=== PATIENT | male | born 1995 | race African-American/Black ===

== ENCOUNTER 2020-02-15 09:21 | Inpatient (IN) | payer OTHER ==
[~2020-02-15] VITALS: Ht 167.6 cm; Wt 65.0 kg
[2020-02-15 10:59] LABS: GLUCOMETER DEV NAME(LOC) PVLAB.13
[2020-02-15] MEDS ORDERED: MAGNESIUM HYDROXIDE SUSPENSION 30 ML UDCUP PO PRN (13:45)
[2020-02-15] MEDS: HEPARIN SODIUM,PORCINE 5,000 UNITS/ML VIAL SQ SCH (17:05)
[2020-02-15 17:14] VITALS: BP 127/86
[2020-02-15 17:57] LABS: BASOPHILS % (AUTO) 0.3 % (0.0-2.0); EOSINOPHILS % (AUTO) 1.2 % (1.0-6.0); HEMATOCRIT 50.1 % (41-53); HEMOGLOBIN 16.5 g/dL (13.5-17.5); LYMPHOCYTES # (AUTO) 1.2 K/uL (1.0-4.8); LYMPHOCYTES % (AUTO) 19.8 % (22.0-44.0); MEAN CORPUSCULAR HEMOGLOBIN 28.1 pg (26.0-34.0); MEAN CORPUSCULAR VOLUME 85 fL (80-100); MONOCYTES # (AUTO) 0.5 K/uL (0.1-1.0); MONOCYTES % (AUTO) 8.6 % (2.0-9.0); NEUTROPHILS # (AUTO) 4.3 K/uL (1.8-7.7); NEUTROPHILS % (AUTO) 70.1 % (40.0-70.0); PLATELET COUNT (AUTO) 285 K/uL (150-450); RED BLOOD CELL COUNT(AUTO) 5.88 MIL/uL (4.50-5.90); RED CELL DISTRIBUTION WIDTH 14.2 % (11.5-14.5)
[2020-02-15 18:03] LABS: APPEARANCE,URINE CLEAR (CLEAR); BILIRUBIN,URINE NEGATIVE (NEGATIVE); GLUCOSE, URINE (UA) NEGATIVE (NEGATIVE); KETONES,URINE 15 mg/dL (NEGATIVE); LEUKOCYTE ESTERASE ,URINE NEGATIVE (NEGATIVE); NITRATE,URINE NEGATIVE (NEGATIVE); OCCULT BLOOD,URINE NEGATIVE (NEGATIVE); PROTEIN,URINE NEGATIVE (NEGATIVE); UROBILINOGEN,URINE 0.2 mg/dL (<=1.0)
[2020-02-15 18:11] LABS: ANION GAP 8 mmol/L (8-16); CALCIUM, TOTAL 9.4 mg/dL (8.8-10.5); CARBON DIOXIDE 33 mmol/L (22-29); CHLORIDE 103 mmol/L (98-107); GLOMERULAR FILTR. RATE CALC > 60 mL/min (>60); GLUCOSE,RANDOM 130 mg/dL (70-110); POTASSIUM 3.9 mmol/L (3.5-5.1); SODIUM SERUM 144 mmol/L (136-145); UREA NITROGEN, BLOOD 11 mg/dL (7-18)
[2020-02-15 18:19] LABS: LACTIC ACID 1.8 mmol/L (0.4-2.0)
[2020-02-15 18:30] LABS: ALANINE AMINOTRANSFERASE 63 U/L (12-78); ALKALINE PHOSPHATASE 74 U/L (46-116); ASPARTATE AMINOTRANSFERASE 24 U/L (15-37); BILIRUBIN,TOTAL 0.3 mg/dL (0.1-1.0); C-REACTIVE PROTEIN QUANT 0.17 mg/dL (0.00-0.30); FERRITIN 316 ng/mL (26-388); TOTAL PROTEIN, SERUM 7.9 g/dL (6.4-8.2)
[2020-02-15 21:59] VITALS: BP 109/61
[2020-02-16] MEDS: HEPARIN SODIUM,PORCINE 5,000 UNITS/ML VIAL SQ SCH ×3 (00:43→15:34)
[2020-02-16 06:30] VITALS: BP 111/71
[2020-02-16 09:15] VITALS: BP 111/64
[2020-02-16 15:20] VITALS: BP 122/86
[2020-02-16 21:56] VITALS: BP 121/47
[2020-02-17] MEDS: HEPARIN SODIUM,PORCINE 5,000 UNITS/ML VIAL SQ SCH ×4 (00:14→22:29)
[2020-02-17 04:33] VITALS: BP 124/72
[2020-02-17 04:38] VITALS: BP 100/62
[2020-02-17 04:50] VITALS: BP_SYST 100; BP_SYST 124; BP_DIAS 62; BP_DIAS 72
[2020-02-17 08:00] VITALS: BP 117/69
[2020-02-17 16:00] VITALS: BP 114/73
[2020-02-17 22:46] VITALS: BP 159/78
[2020-02-17] MEDS ORDERED: HYPROMELLOSE 0.5% 15 ML OPHTHALMIC SOLUTION OU PRN (23:30)
[2020-02-18 01:00] VITALS: BP 115/69
[2020-02-18] MEDS: BENZONATATE 100 MG CAPSULE PO PRN ×3 (01:06→12:08)
[2020-02-18 06:34] VITALS: BP 128/75
[2020-02-18 09:17] VITALS: BP 111/61
[2020-02-18] MEDS: HEPARIN SODIUM,PORCINE 5,000 UNITS/ML VIAL SQ SCH ×3 (09:20→23:15)
[2020-02-18 14:02] LABS: EOSINOPHILS % (AUTO) 1.6 % (1.0-6.0); HEMATOCRIT 45.2 % (41-53); LYMPHOCYTES # (AUTO) 1.2 K/uL (1.0-4.8); LYMPHOCYTES % (AUTO) 27.3 % (22.0-44.0); MEAN CORPUSCULAR HEMOGLOBIN 28.3 pg (26.0-34.0); MEAN CORPUSCULAR HGB CONC 33.3 G/dL (31.0-37.0); MEAN CORPUSCULAR VOLUME 85 fL (80-100); MONOCYTES # (AUTO) 0.5 K/uL (0.1-1.0); MONOCYTES % (AUTO) 11.6 % (2.0-9.0); NEUTROPHILS # (AUTO) 2.5 K/uL (1.8-7.7); NEUTROPHILS % (AUTO) 58.5 % (40.0-70.0); PLATELET COUNT (AUTO) 277 K/uL (150-450); RED BLOOD CELL COUNT(AUTO) 5.31 MIL/uL (4.50-5.90); RED CELL DISTRIBUTION WIDTH 14.2 % (11.5-14.5)
[2020-02-18 14:17] LABS: ANION GAP 4 mmol/L (8-16); CALCIUM, TOTAL 9.3 mg/dL (8.8-10.5); CARBON DIOXIDE 33 mmol/L (22-29); CHLORIDE 104 mmol/L (98-107); GLOMERULAR FILTR. RATE CALC > 60 mL/min (>60); GLUCOSE,RANDOM 101 mg/dL (70-110); POTASSIUM 4.3 mmol/L (3.5-5.1); SODIUM SERUM 141 mmol/L (136-145); UREA NITROGEN, BLOOD 8 mg/dL (7-18)
[2020-02-18] MEDS ORDERED: MAGNESIUM SULFATE 2 GM/WATER 50 ML IV ONE (15:15)
[2020-02-18] MEDS ORDERED: SODIUM CHLORIDE 0.9% 250 ML IV ONE (15:24)
[2020-02-18 16:31] VITALS: BP 117/78
[2020-02-18 22:30] VITALS: BP 124/69
[2020-02-19 06:58] LABS: BASOPHILS % (AUTO) 0.7 % (0.0-2.0); HEMATOCRIT 45.9 % (41-53); HEMOGLOBIN 14.8 g/dL (13.5-17.5); LYMPHOCYTES # (AUTO) 1.6 K/uL (1.0-4.8); LYMPHOCYTES % (AUTO) 31.5 % (22.0-44.0); MEAN CORPUSCULAR HEMOGLOBIN 27.5 pg (26.0-34.0); MEAN CORPUSCULAR HGB CONC 32.3 G/dL (31.0-37.0); MEAN CORPUSCULAR VOLUME 85 fL (80-100); MONOCYTES # (AUTO) 0.6 K/uL (0.1-1.0); MONOCYTES % (AUTO) 11.9 % (2.0-9.0); NEUTROPHILS # (AUTO) 2.8 K/uL (1.8-7.7); NEUTROPHILS % (AUTO) 53.9 % (40.0-70.0); PLATELET COUNT (AUTO) 273 K/uL (150-450); RED BLOOD CELL COUNT(AUTO) 5.39 MIL/uL (4.50-5.90); RED CELL DISTRIBUTION WIDTH 14.1 % (11.5-14.5)
[2020-02-19 07:03] LABS: ANION GAP 5 mmol/L (8-16); CALCIUM, TOTAL 9.3 mg/dL (8.8-10.5); CARBON DIOXIDE 31 mmol/L (22-29); CHLORIDE 105 mmol/L (98-107); GLOMERULAR FILTR. RATE CALC > 60 mL/min (>60); GLUCOSE,RANDOM 91 mg/dL (70-110); POTASSIUM 4.8 mmol/L (3.5-5.1); SODIUM SERUM 141 mmol/L (136-145); UREA NITROGEN, BLOOD 11 mg/dL (7-18)
[2020-02-19 08:51] VITALS: BP 121/81
[2020-02-19] MEDS: HEPARIN SODIUM,PORCINE 5,000 UNITS/ML VIAL SQ SCH ×2 (08:57→15:26)
[2020-02-19] MEDS: BENZONATATE 100 MG CAPSULE PO PRN (08:57)
[2020-02-19] MEDS: ACETAMINOPHEN 325 MG TABLET PO PRN (08:57)
[2020-02-19] MEDS: PHENOL 1.4% 177 ML SPRAY BOTTLE PO PRN (15:26)
[2020-02-19 16:46] VITALS: BP 139/82
[2020-02-19 22:53] VITALS: BP 107/72
[2020-02-20] MEDS: HEPARIN SODIUM,PORCINE 5,000 UNITS/ML VIAL SQ SCH ×4 (00:52→23:59)
[2020-02-20 06:22] VITALS: BP 109/73
[2020-02-20 08:13] LABS: BASOPHILS % (AUTO) 0.6 % (0.0-2.0); EOSINOPHILS % (AUTO) 2.3 % (1.0-6.0); HEMATOCRIT 46.9 % (41-53); HEMOGLOBIN 14.9 g/dL (13.5-17.5); LYMPHOCYTES # (AUTO) 1.4 K/uL (1.0-4.8); LYMPHOCYTES % (AUTO) 26.1 % (22.0-44.0); MEAN CORPUSCULAR HEMOGLOBIN 27.3 pg (26.0-34.0); MEAN CORPUSCULAR HGB CONC 31.8 G/dL (31.0-37.0); MEAN CORPUSCULAR VOLUME 86 fL (80-100); MONOCYTES # (AUTO) 0.5 K/uL (0.1-1.0); MONOCYTES % (AUTO) 9.9 % (2.0-9.0); NEUTROPHILS # (AUTO) 3.4 K/uL (1.8-7.7); NEUTROPHILS % (AUTO) 61.1 % (40.0-70.0); PLATELET COUNT (AUTO) 280 K/uL (150-450); RED BLOOD CELL COUNT(AUTO) 5.46 MIL/uL (4.50-5.90)
[2020-02-20] MEDS: PHENOL 1.4% 177 ML SPRAY BOTTLE PO PRN ×2 (08:15→16:10)
[2020-02-20] MEDS: BENZONATATE 100 MG CAPSULE PO PRN ×2 (08:15→16:10)
[2020-02-20 08:29] LABS: ANION GAP 8 mmol/L (8-16); CALCIUM, TOTAL 9.1 mg/dL (8.8-10.5); CARBON DIOXIDE 29 mmol/L (22-29); CHLORIDE 103 mmol/L (98-107); CREATININE 1.04 mg/dL (0.60-1.30); GLOMERULAR FILTR. RATE CALC > 60 mL/min (>60); GLUCOSE,RANDOM 85 mg/dL (70-110); POTASSIUM 5.1 mmol/L (3.5-5.1); SODIUM SERUM 140 mmol/L (136-145); UREA NITROGEN, BLOOD 11 mg/dL (7-18)
[2020-02-20 09:09] VITALS: BP 119/71
[2020-02-20 16:31] VITALS: BP 117/68
[2020-02-20 20:33] VITALS: BP 115/57
[2020-02-21 06:00] VITALS: BP 108/69
[2020-02-21] MEDS: PHENOL 1.4% 177 ML SPRAY BOTTLE PO PRN (06:22)
[2020-02-21 07:57] LABS: BASOPHILS % (AUTO) 0.8 % (0.0-2.0); EOSINOPHILS % (AUTO) 2.4 % (1.0-6.0); HEMATOCRIT 47.6 % (41-53); HEMOGLOBIN 15.2 g/dL (13.5-17.5); LYMPHOCYTES # (AUTO) 1.5 K/uL (1.0-4.8); LYMPHOCYTES % (AUTO) 27.8 % (22.0-44.0); MEAN CORPUSCULAR HEMOGLOBIN 27.3 pg (26.0-34.0); MEAN CORPUSCULAR HGB CONC 31.9 G/dL (31.0-37.0); MEAN CORPUSCULAR VOLUME 86 fL (80-100); MONOCYTES # (AUTO) 0.5 K/uL (0.1-1.0); MONOCYTES % (AUTO) 9.8 % (2.0-9.0); NEUTROPHILS # (AUTO) 3.2 K/uL (1.8-7.7); NEUTROPHILS % (AUTO) 59.2 % (40.0-70.0); PLATELET COUNT (AUTO) 295 K/uL (150-450); RED BLOOD CELL COUNT(AUTO) 5.56 MIL/uL (4.50-5.90); RED CELL DISTRIBUTION WIDTH 13.8 % (11.5-14.5)
[2020-02-21] MEDS: HEPARIN SODIUM,PORCINE 5,000 UNITS/ML VIAL SQ SCH ×2 (08:05→16:36)
[2020-02-21 08:15] VITALS: BP 110/74
[2020-02-21 08:18] LABS: ANION GAP 7 mmol/L (8-16); CALCIUM, TOTAL 9.2 mg/dL (8.8-10.5); CARBON DIOXIDE 31 mmol/L (22-29); CHLORIDE 104 mmol/L (98-107); CREATININE 0.86 mg/dL (0.60-1.30); GLOMERULAR FILTR. RATE CALC > 60 mL/min (>60); GLUCOSE,RANDOM 86 mg/dL (70-110); POTASSIUM 4.5 mmol/L (3.5-5.1); SODIUM SERUM 142 mmol/L (136-145); UREA NITROGEN, BLOOD 11 mg/dL (7-18)
[2020-02-21 12:30] VITALS: BP 118/73
[2020-02-21 16:30] VITALS: BP 108/76
[2020-02-21] MEDS: ACETAMINOPHEN 325 MG TABLET PO PRN (16:42)
[2020-02-21 20:00] VITALS: BP 116/81
[2020-02-22] MEDS: HEPARIN SODIUM,PORCINE 5,000 UNITS/ML VIAL SQ SCH ×3 (00:41→16:13)
[2020-02-22 05:00] VITALS: BP 112/64
[2020-02-22 08:00] VITALS: BP 113/80
[2020-02-22] MEDS: BENZONATATE 100 MG CAPSULE PO PRN (09:58)
[2020-02-22 15:30] VITALS: BP 132/70
[2020-02-22 22:44] VITALS: BP 117/66
[2020-02-23] MEDS: HEPARIN SODIUM,PORCINE 5,000 UNITS/ML VIAL SQ SCH ×4 (00:06→23:01)
[2020-02-23 08:57] VITALS: BP 118/73
[2020-02-23 15:56] VITALS: BP 128/74
[2020-02-23 20:21] VITALS: BP 120/74
[2020-02-24 04:49] VITALS: BP 116/52
[2020-02-24 07:40] VITALS: BP 116/68
[2020-02-24] MEDS: HEPARIN SODIUM,PORCINE 5,000 UNITS/ML VIAL SQ SCH ×3 (09:45→23:13)
[2020-02-24] MEDS: BENZONATATE 100 MG CAPSULE PO PRN (15:12)
[2020-02-24 15:20] VITALS: BP 119/70
[2020-02-24 20:33] VITALS: BP 118/69
[2020-02-25 04:00] VITALS: BP 105/61
[2020-02-25 07:56] VITALS: BP 109/56
[2020-02-25] MEDS: HEPARIN SODIUM,PORCINE 5,000 UNITS/ML VIAL SQ SCH ×2 (08:11→16:53)
[2020-02-25 15:53] VITALS: BP 119/71
[2020-02-25 20:19] VITALS: BP 109/71
[2020-02-26] MEDS: HEPARIN SODIUM,PORCINE 5,000 UNITS/ML VIAL SQ SCH ×4 (00:13→23:08)
[2020-02-26 00:18] VITALS: BP 123/75
[2020-02-26 08:16] VITALS: BP 114/70
[2020-02-26 15:40] VITALS: BP 130/63
[2020-02-27 00:27] VITALS: BP 113/50
[2020-02-27] MEDS: HEPARIN SODIUM,PORCINE 5,000 UNITS/ML VIAL SQ SCH ×3 (08:06→23:18)
[2020-02-27] MEDS: BENZONATATE 100 MG CAPSULE PO PRN (08:07)
[2020-02-27 08:26] VITALS: BP 112/74
[2020-02-27 15:26] VITALS: BP 118/68
[2020-02-27 19:30] VITALS: BP 120/76
[2020-02-28 05:18] VITALS: BP 107/58
[2020-02-28 08:01] VITALS: BP 112/60
[2020-02-28] MEDS: HEPARIN SODIUM,PORCINE 5,000 UNITS/ML VIAL SQ SCH ×2 (08:32→16:49)
[2020-02-28 16:14] VITALS: BP 113/70
[2020-02-28] MEDS: BENZONATATE 100 MG CAPSULE PO PRN (18:37)
[2020-02-28 21:25] VITALS: BP 121/79
[2020-02-29] MEDS: HEPARIN SODIUM,PORCINE 5,000 UNITS/ML VIAL SQ SCH ×4 (00:14→23:41)
[2020-02-29 07:42] VITALS: BP 112/74
[2020-02-29] MEDS: BENZONATATE 100 MG CAPSULE PO PRN (11:02)
[2020-02-29 11:07] LABS: BASOPHILS % (AUTO) 0.5 % (0.0-2.0); EOSINOPHILS % (AUTO) 2.9 % (1.0-6.0); HEMATOCRIT 46.1 % (41-53); HEMOGLOBIN 14.8 g/dL (13.5-17.5); LYMPHOCYTES # (AUTO) 1.6 K/uL (1.0-4.8); LYMPHOCYTES % (AUTO) 25.9 % (22.0-44.0); MEAN CORPUSCULAR HEMOGLOBIN 27.4 pg (26.0-34.0); MEAN CORPUSCULAR HGB CONC 32.2 G/dL (31.0-37.0); MEAN CORPUSCULAR VOLUME 85 fL (80-100); MONOCYTES # (AUTO) 0.5 K/uL (0.1-1.0); MONOCYTES % (AUTO) 8.2 % (2.0-9.0); NEUTROPHILS # (AUTO) 3.8 K/uL (1.8-7.7); NEUTROPHILS % (AUTO) 62.5 % (40.0-70.0); PLATELET COUNT (AUTO) 287 K/uL (150-450); RED CELL DISTRIBUTION WIDTH 13.8 % (11.5-14.5)
[2020-02-29 11:25] LABS: ANION GAP 1 mmol/L (8-16); CALCIUM, TOTAL 9.3 mg/dL (8.8-10.5); CARBON DIOXIDE 33 mmol/L (22-29); CHLORIDE 101 mmol/L (98-107); CREATININE 0.89 mg/dL (0.60-1.30); GLOMERULAR FILTR. RATE CALC > 60 mL/min (>60); GLUCOSE,RANDOM 121 mg/dL (70-110); POTASSIUM 4.4 mmol/L (3.5-5.1); SODIUM SERUM 135 mmol/L (136-145); UREA NITROGEN, BLOOD 10 mg/dL (7-18)
[2020-02-29 15:45] VITALS: BP 108/67
[2020-02-29 19:29] VITALS: BP 115/69
[2020-03-01 03:37] VITALS: BP 105/57
[2020-03-01 08:21] VITALS: BP 103/57
[2020-03-01] MEDS: HEPARIN SODIUM,PORCINE 5,000 UNITS/ML VIAL SQ SCH ×2 (09:02→16:17)
[2020-03-01 15:57] VITALS: BP 122/67
[2020-03-01 21:16] VITALS: BP 123/74
[2020-03-02] MEDS: HEPARIN SODIUM,PORCINE 5,000 UNITS/ML VIAL SQ SCH ×4 (00:47→23:20)
[2020-03-02 08:04] VITALS: BP 141/70
[2020-03-02] MEDS: ACETAMINOPHEN 325 MG TABLET PO PRN (15:14)
[2020-03-02] MEDS: BENZONATATE 100 MG CAPSULE PO PRN (15:14)
[2020-03-02 15:22] VITALS: BP 130/77
[2020-03-02 23:30] VITALS: BP 120/65
[2020-03-03 08:57] VITALS: BP 119/69
[2020-03-03] MEDS: HEPARIN SODIUM,PORCINE 5,000 UNITS/ML VIAL SQ SCH ×3 (09:13→23:36)
[2020-03-03] MEDS: BENZONATATE 100 MG CAPSULE PO PRN (09:29)
[2020-03-03 16:41] VITALS: BP 118/74
[2020-03-03 20:30] VITALS: BP 143/74
[2020-03-03 23:51] VITALS: BP 131/81
[2020-03-04 05:16] VITALS: BP 107/57
[2020-03-04] MEDS: HEPARIN SODIUM,PORCINE 5,000 UNITS/ML VIAL SQ SCH ×3 (09:03→23:47)
[2020-03-04 12:43] VITALS: BP 111/80
[2020-03-04] MEDS: ACETAMINOPHEN 325 MG TABLET PO PRN (14:57)
[2020-03-04 16:39] LABS: BASOPHILS % (AUTO) 0.9 % (0.0-2.0); EOSINOPHILS % (AUTO) 3.2 % (1.0-6.0); HEMATOCRIT 46.6 % (41-53); HEMOGLOBIN 15.4 g/dL (13.5-17.5); LYMPHOCYTES # (AUTO) 1.8 K/uL (1.0-4.8); LYMPHOCYTES % (AUTO) 28.7 % (22.0-44.0); MEAN CORPUSCULAR HEMOGLOBIN 28.1 pg (26.0-34.0); MEAN CORPUSCULAR HGB CONC 32.9 G/dL (31.0-37.0); MEAN CORPUSCULAR VOLUME 85 fL (80-100); MONOCYTES # (AUTO) 0.5 K/uL (0.1-1.0); MONOCYTES % (AUTO) 7.7 % (2.0-9.0); NEUTROPHILS # (AUTO) 3.8 K/uL (1.8-7.7); NEUTROPHILS % (AUTO) 59.5 % (40.0-70.0); PLATELET COUNT (AUTO) 247 K/uL (150-450); RED BLOOD CELL COUNT(AUTO) 5.47 MIL/uL (4.50-5.90); RED CELL DISTRIBUTION WIDTH 14.1 % (11.5-14.5)
[2020-03-04 16:54] LABS: ALANINE AMINOTRANSFERASE 126 U/L (12-78); ALBUMIN 4.1 g/dL (3.4-5.0); ALKALINE PHOSPHATASE 64 U/L (46-116); ANION GAP 9 mmol/L (8-16); ASPARTATE AMINOTRANSFERASE 25 U/L (15-37); BILIRUBIN,TOTAL 0.2 mg/dL (0.1-1.0); CALCIUM, TOTAL 9.5 mg/dL (8.8-10.5); CARBON DIOXIDE 30 mmol/L (22-29); CHLORIDE 101 mmol/L (98-107); CREATININE 0.99 mg/dL (0.60-1.30); GLOMERULAR FILTR. RATE CALC > 60 mL/min (>60); GLUCOSE,RANDOM 94 mg/dL (70-110); POTASSIUM 4.5 mmol/L (3.5-5.1); SODIUM SERUM 140 mmol/L (136-145); TOTAL PROTEIN, SERUM 7.9 g/dL (6.4-8.2); UREA NITROGEN, BLOOD 11 mg/dL (7-18)
[2020-03-04 20:25] VITALS: BP 118/75
== END 2020-03-05 07:00 | DRG 178 ==
LOC: EMS 09:24 → 5S 14:34 → 6N 16:28
PROVIDERS: ADMIT Internal Medicine; ATTEND Internal Medicine
DX: U07.1 COVID-19 (principal); B19.9 Unspecified viral hepatitis without hepatic coma; H26.9 Unspecified cataract
CPT/HCPCS: 82728; 83605; 83735; 86140; J1644; J3475; J7050